=== PATIENT | female | born 1950 | race Two or more races ===

== ENCOUNTER 2022-07-25 08:47 | Day surgery (SDC) | payer MEDICARE, BC ==
[2022-07-23 11:00] LABS: INR 1.03 (0.9-1.15); Partial Thromboplastin Time 25.8 sec (24.6-33.4)
[2022-07-23 11:11] LABS: Basophils # (auto) 0 10 ^3/uL (0-0.2); Basophils % (auto) 0.7 % (0.0-2.0); Eosinophils # (auto) 0.1 10 ^3/uL (0-0.8); Eosinophils % (auto) 1.6 % (0.0-7.0); Hematocrit 41.8 % (36.0-46.0); Hemoglobin 13.9 g/dL (12.2-16.2); Lymphocytes # (auto) 1.6 10 ^3/uL (0.4-5.4); Lymphocytes % (auto) 24.9 % (10.0-50.0); Mean Corpuscular Hemoglobin 28.7 pg (28.0-32.0); Mean Corpuscular Hgb Conc. 33.2 g/dL (32.0-36.0); Mean Corpuscular Volume 86.5 fL (80.0-100.0); Monocytes # (auto) 0.4 10 ^3/uL (0-1.3); Monocytes % (auto) 6.2 % (0.0-12.0); Neutrophils # (auto) 4.3 10 ^3/uL (1.6-8.6); Neutrophils % (auto) 66.6 % (37.0-80.0); Nucleated Red Blood Cells % 0.2 %; Red Blood Cells 4.84 10^6/uL (4.0-5.20); Red Cell Distribution Width 15.5 % (11.8-14.3); White Blood Cell 6.5 10^3/uL (4.4-10.8)
[2022-07-23 11:25] LABS: Albumin 3.6 g/dL (3.4-5.0); BUN/Creatinine Ratio 24.2 (10.0-20.0); Calcium 9.4 mg/dL (8.5-10.1); Potassium 3.9 mmol/L (3.5-5.1)
[2022-07-23 11:27] LABS: Bilirubin, Total 0.4 mg/dL (0.2-1.0); Total Protein 8.3 g/dL (6.4-8.2)
[~2022-07-25] VITALS: Ht 157.5 cm; Wt 81.6 kg
[~2022-07-25 08:47] MED LIST: ATOR10TA52 PO; CLON0.2T PO; HYDR12.56 PO; LEVO75CA3 PO; LOSA-39 PO; MET50T PO; NIFE1TAB31 PO
[2022-07-25] MEDS ORDERED: diphenhdrAMINE HCL 50 MG/1 ML VL ONE (09:42)
[2022-07-25] MEDS ORDERED: LIDOCAINE VISCOUS 2% 15ML UD ONE (09:42)
[2022-07-25] MEDS: MIDAZOLAM HCL 2MG/2ML 2ml VIAL (1mg/ml) ONE ×2 (10:06→10:09)
[2022-07-25] MEDS: fentaNYL CITRATE 100 MCG/2 ML VL ONE ×2 (10:06→10:09)
[2022-07-25 11:03] VITALS: BP 110/43
== END 2022-07-25 11:28 | disposition home or self-care (01) ==
LOC: GI 08:47
PROVIDERS: ATTEND Internal Medicine Gastroenterology
DX: R10.13 Epigastric pain (principal); K29.50 Unspecified chronic gastritis without bleeding; R14.0 Abdominal distension (gaseous); I10 Essential (primary) hypertension; K21.9 Gastro-esophageal reflux disease without esophagitis; E03.9 Hypothyroidism, unspecified; Z88.6 Allergy status to analgesic agent; Z88.8 Allergy status to other drugs, medicaments and biological substances; Z79.899 Other long term (current) drug therapy; Z79.890 Hormone replacement therapy; Z98.890 Other specified postprocedural states
CPT/HCPCS: 36415; 43239; 80053; 85025; 85610; 85730; 88305; 88342; J1200; J2250; J3010; J7030

== ENCOUNTER 2024-06-24 08:17 | Day surgery (SDC) | payer MEDICARE, OTHER ==
[2024-06-23 12:10] LABS: Urine Bacteria None Seen /hpf (None Seen)
[2024-06-23 12:15] LABS: Basophils # (auto) 0.1 10 ^3/uL (0-0.2); Basophils % (auto) 1.1 % (0.0-2.0); Eosinophils # (auto) 0.2 10 ^3/uL (0-0.8); Hematocrit 41.4 % (36.0-46.0); Lymphocytes # (auto) 2.5 10 ^3/uL (0.4-5.4); Lymphocytes % (auto) 31.7 % (10.0-50.0); Mean Corpuscular Hemoglobin 29.4 pg (28.0-32.0); Mean Corpuscular Hgb Conc. 33.9 g/dL (32.0-36.0); Mean Corpuscular Volume 86.8 fL (80.0-100.0); Monocytes # (auto) 0.5 10 ^3/uL (0-1.3); Neutrophils # (auto) 4.7 10 ^3/uL (1.6-8.6); Neutrophils % (auto) 59.2 % (37.0-80.0); Platelet Count (auto) 310 10^3/uL (140-450); Red Blood Cells 4.77 10^6/uL (4.0-5.20); Red Cell Distribution Width 15.5 % (11.8-14.3); White Blood Cell 7.9 10^3/uL (4.4-10.8)
[2024-06-23 12:38] LABS: Urine Blood Negative /uL (Negative); Urine Clarity Clear (Clear); Urine Color Colorless (Yellow); Urine Protein, UAD Negative (Negative); Urine Specific Gravity 1.008 (1.001-1.035); Urine Squamous Epithelial Cell FEW /hpf (<5); Urine Urobilinogen Normal (Negative); Urine WBC 8 /HPF (0-5)
[2024-06-23 12:43] LABS: INR 1.03 (0.9-1.15); Partial Thromboplastin Time 27.6 SEC (24.5-34.5); Prothrombin Time 10.9 sec (9.3-11.8)
[2024-06-23 13:01] LABS: Albumin 4.7 g/dL (3.2-4.8); Anion Gap 10 (5-15); Aspartate Aminotransferase 22 U/L (13-40); BUN/Creatinine Ratio 18.2 (10.0-20.0); Bilirubin, Total 0.4 mg/dL (0.2-1.0); Blood Urea Nitrogen 14 mg/dL (9-23); Calcium 9.8 mg/dL (8.7-10.4); Carbon Dioxide 25 mmol/L (20-31); Chloride 104 mmol/L (98-107); Potassium 3.8 mmol/L (3.5-5.1); Sodium 139 mmol/L (136-145); Total Protein 7.8 g/dL (5.7-8.2)
[2024-06-23 13:05] LABS: Alanine Aminotransferase 41 U/L (7-40); Alkaline Phosphatase 146 U/L (46-116); Glucose 115 mg/dL (74-106)
[~2024-06-24] VITALS: Ht 157.5 cm; Wt 78.0 kg
[~2024-06-24 08:17] MED LIST changes: +BUME1TAB3 PO; -HYDR12.56 PO; +HYDR12.59 PO; -LOSA-39 PO; +LOSA-535 PO; +METO5TAB2 PO; +PANT40TA2 PO; +SEMA2INJ3 SC
[2024-06-24] MEDS ORDERED: PROPOFOL 10 MG/ML 20 ML IV ONE (09:15)
--- NOTE | 2024-06-24 09:24 | DVHHP2 ---
GI H&P Pre-Op Assessment Date: 06/24/24 Chief complaint: Epigastric pain, dysphagia HPI: per clinic note Past medical history: per clinic note Past surgical history: per clinic note Family history: per clinic note Physical exam: General: NAD, AAOX3 HEENT: PERRL, no scleral icterus, normal hearing, gums without lesions or bleeding, oropharynx clear without erythema or exudate. Neck: Supple without enlargement of the thyroid, or lymphadenopathy. Chest: Normal size and shape, no tenderness, lung maier clear to auscultation and percussion, nonlabored breathing. Heart: RRR, no murmur Abdomen: non-distended, no tenderness to palpation, +BS, no hepatosplenomegaly Extremities: no edema Neurological: CN II-XII intact, sensation intact in all extremities, 5+ strength in all extremities Skin: No rashes, No jaundice Assessment: - epigastric pain and dysphagia Plan: - EGD - Risks (bleeding, infection, perforation, reaction to sedation medications and cardiopulmonary arrest) and benefit of the procedure were explained to patient. Patient agrees to undergo the procedure. CATERINA THOMPSON MD Jun 24, 2024 09:24
--- NOTE | 2024-06-24 09:26 | DVHOP2 ---
Operative Report DATE OF OPERATION: 06/24/24 PROCEDURE: Upper Endoscopy. PREOPERATIVE INDICATION: The patient is a 74 -year-old female undergoing endoscopy for epigastric pain and dysphagia. POSTOPERATIVE DIAGNOSES: 1. Antral gastritis 2. 2 cm hiatal hernia 3. Esophagus was dilated with 50 [place] bougie PROCEDURE PERFORMED BY: Brian Sheridan SCOPE: Olympus videoendoscope. ASA CLASS: 3 PREOPERATIVE MEDICATIONS: MAC with Dr Ga PROCEDURE IN DETAIL: After obtaining an informed consent, the patient was placed on left lateral decubitus position. The patient was then sedated with the above medications. A bite block was placed between her teeth. The endoscope was then passed through the oropharynx, into the esophagus, and through the stomach and pylorus up to the second and third part of the duodenum. The duodenal was normal in appearance. There was antral gastritis. Antral biopsies were obtained using cold forceps. There was a 2 cm hiatal hernia The GE junction was normal in appearance at 34 cm. The esophagus was normal in appearance. The esophagus was dilated with 50 [place] bougie. The endoscope was then withdrawn. The patient tolerated the procedure well without difficulty. COMPLICATIONS : None SPECIMENS: Antral biopsies DISPOSITION: D/C to home PLAN: 1. Await for biopsy result BRIAN SHERIDAN MD Jun 24, 2024 09:26
[2024-06-24 09:27] VITALS: PULSE 77; RESP 22; TEMP 97.6; O2SAT 93
--- NOTE | 2024-06-24 09:27 | DVHDS2 ---
Physician Discharge Progress N Final Diagnosis: Antral gastritis, hiatal hernia Operations or Procedures: Operations or Procedures EGD with cold biopsy and dilation with bougie Condition on Discharge: Good Disposition: Home Discharge Instructions: Diet: Regular Activity: No Restrictions, As Tolerated Medications: Resume previous home medications Follow Up Care: Discharge Statement: "Patient was advised to return to the ER or call 911 if any headaches, dizziness, shortness of breath, chest pain, abdominal pain, bleeding, fevers, or worsening of medical condition. Patient was counseled about treatment plan, medications, possible side effects, patientverbalized understanding. All questions were answered to the best of my ability. This discharge took greater then 30 minutes in planning, reviewing documentation, counseling the patient, and discussing with other team members." CATERINA THOMPSON MD Jun 24, 2024 09:27
[2024-06-24 09:57] VITALS: BP 108/44; PULSE 68; RESP 12; O2SAT 96
== END 2024-06-24 10:07 | disposition home or self-care (01) ==
LOC: GI 08:17
PROVIDERS: ATTEND Internal Medicine Gastroenterology
DX: R13.10 Dysphagia, unspecified (principal); K29.50 Unspecified chronic gastritis without bleeding; K44.9 Diaphragmatic hernia without obstruction or gangrene; K31.84 Gastroparesis; R10.13 Epigastric pain; I10 Essential (primary) hypertension; E11.43 Type 2 diabetes mellitus with diabetic autonomic (poly)neuropathy; E03.9 Hypothyroidism, unspecified; Z79.01 Long term (current) use of anticoagulants; Z79.890 Hormone replacement therapy; Z79.899 Other long term (current) drug therapy; Z98.891 History of uterine scar from previous surgery; Z88.8 Allergy status to other drugs, medicaments and biological substances
CPT/HCPCS: 36415; 43239; 43450; 80053; 81001; 82962; 85025; 85610; 85730; 88305; 88312; 88342; J2704; J7030

== ENCOUNTER 2025-02-10 07:00 | Day surgery (SDC) | payer MEDICARE, OTHER ==
[2025-02-07 13:15] LABS: Hematocrit 39.2 % (36.0-46.0); Hemoglobin 13.4 g/dL (12.2-16.2); Mean Corpuscular Hemoglobin 29.5 pg (28.0-32.0); Mean Corpuscular Volume 86.4 fL (80.0-100.0); Nucleated Red Blood Cells % 0.1 %
[2025-02-07 13:34] LABS: INR 1.05 (0.9-1.15); Partial Thromboplastin Time 27.1 SEC (24.5-34.5); Prothrombin Time 11.1 sec (9.3-11.8)
[2025-02-07 13:39] LABS: Alanine Aminotransferase 24 U/L (7-40); Albumin 4.1 g/dL (3.2-4.8); Anion Gap 10 (5-15); BUN/Creatinine Ratio 22.5 (10.0-20.0); Blood Urea Nitrogen 20 mg/dL (9-23); Calcium 9.7 mg/dL (8.7-10.4); Carbon Dioxide 28 mmol/L (20-31); Chloride 104 mmol/L (98-107); Potassium 4.5 mmol/L (3.5-5.1); Sodium 142 mmol/L (136-145); Total Protein 7.3 g/dL (5.7-8.2)
[2025-02-07 13:40] LABS: Bilirubin, Total 0.5 mg/dL (0.2-1.0)
[2025-02-07 13:41] LABS: Urine Protein, UAD Negative (Negative)
[2025-02-07 13:44] LABS: Alkaline Phosphatase 122 U/L (46-116); Glucose 106 mg/dL (74-106)
[~2025-02-10] VITALS: Ht 157.5 cm; Wt 76.2 kg
[~2025-02-10 07:00] MED LIST changes: +METO10TA3 PO; -METO5TAB2 PO
[2025-02-10 07:13] VITALS: TEMP 97.7
[2025-02-10] MEDS ORDERED: PROPOFOL 10 MG/ML 20 ML IV ONE (07:44)
[2025-02-10] MEDS ORDERED: LIDOCAINE 1% INJ PF 5ML AMP ONE (07:44)
[2025-02-10 08:18] VITALS: PULSE 68; RESP 18; O2SAT 98
--- NOTE | 2025-02-10 08:18 | DVHHP2 ---
GI H&P Pre-Op Assessment Date: 02/10/25 Chief complaint: colon cancer screening HPI: per clinic note Past medical history: per clinic note Past surgical history: per clinic note Family history: per clinic note Physical exam: General: NAD, AAOX3 HEENT: PERRL, no scleral icterus, normal hearing, gums without lesions or bleeding, oropharynx clear without erythema or exudate. Neck: Supple without enlargement of the thyroid, or lymphadenopathy. Chest: Normal size and shape, no tenderness, lung maier clear to auscultation and percussion, nonlabored breathing. Heart: RRR, no murmur Abdomen: non-distended, no tenderness to palpation, +BS, no hepatosplenomegaly Extremities: no edema Neurological: CN II-XII intact, sensation intact in all extremities, 5+ strength in all extremities Skin: No rashes, No jaundice Assessment: - colon cancer screening Plan: - Colonoscopy - Risks (bleeding, infection, perforation, reaction to sedation medications and cardiopulmonary arrest) and benefit of the procedure were explained to patient. Patient agrees to undergo the procedure. CATERINA THOMPSON MD Feb 10, 2025 08:18
--- NOTE | 2025-02-10 08:19 | DVHOP2 ---
Operative Report DATE OF OPERATION: 02/10/25 PROCEDURE: Colonoscopy. PREOPERATIVE INDICATION: The patient is a 75 -year-old female undergoing colonoscopy for colon cancer screening. POSTOPERATIVE DIAGNOSES: 1. Few diffuse diverticulosis 2. Internal and external hemorrhoids PROCEDURE PERFORMED BY: Brian Sheridan M.D. SCOPE: Olympus videocolonoscope. ASA CLASS: 3 PREOPERATIVE MEDICATIONS: MAC with [employer] PROCEDURE IN DETAIL: After obtaining an informed consent, the patient was placed on left lateral decubitus position. She was then sedated with the above medications. A rectal examination was performed that showed an external hemorrhoid. The colonoscope was then passed through the anus into the rectosigm oid and through the descending, transverse, and ascending colon up to the cecum with visualization of the appendiceal orifice, base of the cecum and the ileocecal valve. No mass or polyp was observed. There was a few diffuse diverticulosis. There were internal hemorrhoids. The colonoscope was then withdrawn. The patient tolerated the procedure well without difficulty. WITHDRAWAL TIME: 12 minutes QUALITY OF THE PREP: [place] Bowel Prep score: 4 COMPLICATIONS : None SPECIMENS: None DISPOSITION: D/C to home PLAN: 1. Repeat colonoscopy in five years for colon cancer screening due to suboptimal prep. BRIAN SHERIDAN MD Feb 10, 2025 08:19
--- NOTE | 2025-02-10 08:22 | DVHDS2 ---
Physician Discharge Progress N Final Diagnosis: Diverticulosis, internal and external hemorrhoids Operations or Procedures: Operations or Procedures colonoscopy Condition on Discharge: Good Disposition: Home Discharge Instructions: Diet: Regular Activity: No Restrictions, As Tolerated Medications: Resume previous home medications Follow Up Care: Discharge Statement: "Patient was advised to return to the ER or call 911 if any headaches, dizziness, shortness of breath, chest pain, abdominal pain, bleeding, fevers, or worsening of medical condition. Patient was counseled about treatment plan, medications, possible side effects, patientverbalized understanding. All questions were answered to the best of my ability. This discharge took greater then 30 minutes in planning, reviewing documentation, counseling the patient, and discussing with other team members." CATERINA THOMPSON MD Feb 10, 2025 08:22
[2025-02-10] MEDS ORDERED: ACETAMINOPHEN IV 1000 MG/100ML (10MG/ML) IV STA (08:33)
[2025-02-10] MEDS ORDERED: ACETAMINOPHEN IV 0 ML IV ONE (08:36)
[2025-02-10 08:48] VITALS: BP 133/52; PULSE 76; RESP 16; O2SAT 98
== END 2025-02-10 09:00 | disposition home or self-care (01) ==
LOC: GI 07:00
PROVIDERS: ATTEND Internal Medicine Gastroenterology
DX: Z12.11 Encounter for screening for malignant neoplasm of colon (principal); K57.30 Diverticulosis of large intestine without perforation or abscess without bleeding; K64.4 Residual hemorrhoidal skin tags; K64.8 Other hemorrhoids; K29.70 Gastritis, unspecified, without bleeding; K21.9 Gastro-esophageal reflux disease without esophagitis; K31.84 Gastroparesis; I10 Essential (primary) hypertension; E03.9 Hypothyroidism, unspecified; E66.3 Overweight; Z68.30 Body mass index [BMI] 30.0-30.9, adult; Z79.84 Long term (current) use of oral hypoglycemic drugs; Z79.890 Hormone replacement therapy; Z79.899 Other long term (current) drug therapy; Z90.710 Acquired absence of both cervix and uterus; Z98.891 History of uterine scar from previous surgery; Z98.890 Other specified postprocedural states; Z88.5 Allergy status to narcotic agent; Z88.8 Allergy status to other drugs, medicaments and biological substances
CPT/HCPCS: 36415; 80053; 81001; 82962; 85025; 85610; 85730; G0121; J2704; J7030; J0131